=== PATIENT | female | born 1975 | race African-American/Black ===

== ENCOUNTER 2016-11-16 15:18 | Emergency (ER) | payer MEDICARE, OTHER ==
[~2016-11-16 15:18] MED LIST: AMARYL2 PO; AMB10 PO; CATAFLAM50 MG PO; CELEXA20 PO; CLIN200 PO; COZ25 PO; DIGITEK0.125 MG PO; ESKALITH PO; FLEX PO; FLOVENT44 INH; GLUCOPHAGE1000 MG PO; HYDROCHLOROT25 MG PO; INVEGA6 MG OR; L80 PO; LANTUS SC; LEVSINTAB PO; LIBRAX PO; LOM PO; LOP50 PO; LORTAB10 PO; NAVANE5 MG OR; NEUR300 PO; NEXIUM40 PO; NORV5 PO; PR12.5 PO; PR25 PO; PROVHFA INH; SEREVDISC INH; SPIRO25 PO; SYN.05 PO; TRAZ50 PO; VENTOLIN HFA INH; VIMPAT100 MG PO; VIMPAT150 MG PO; VITAMIN D1000 UNI1 PO; VIVELLE SY0.1 MG/24 TOP; ZEGERID1 CA1 PO; ZESTRIL20 MG PO; ZYDONE1 TA2 PO; ZYRTEC ALLGY10 MG PO; [UNRECOGNIZED DRUG - OTHER]
[2016-11-16 17:16] LABS: BASOPHILS 0.4 %; BASOPHILS ABSOLUTE 0.03 10/3/uL (0.0-0.16); EOSINOPHILS 2.9 %; EOSINOPHILS ABSOLUTE 0.24 10/3/uL (0.0-0.53); HEMATOCRIT 38.2 % (36.0-48.0); HEMOGLOBIN 13.2 g/dL (12.0-16.0); IMMATURE GRANULOCYTES 0.2 %; IMMATURE GRANULOCYTES ABSOLUTE 0.02 10/3/uL (0.0-0.11); LYMPHOCYTES 39.1 %; LYMPHOCYTES ABSOLUTE 3.19 10/3/uL (0.67-4.30); MEAN CORPUS HGB CONC 34.6 g/dL (32.0-36.0); MEAN CORPUSCULAR HEMOGLOB 28.7 pg (26.0-34.0); MEAN PLATELET VOLUME 11.2 fL (9.2-13.0); MONOCYTES ABSOLUTE 0.33 10/3/uL (0.21-1.20); NEUTROPHILS 53.4 %; NEUTROPHILS ABSOLUTE 4.35 10/3/uL (2.02-8.40); PLATELET COUNT 254 10/3/uL (150-400); WHITE BLOOD CELLS 8.2 10/3/uL (4.5-10.5)
[2016-11-16 17:20] LABS: MANUAL DIFF NO %
[2016-11-16 17:33] LABS: CALCIUM, SERUM 8.9 MG/DL (8.5-10.4); CHEST PAIN PROFILE TAT 0 Hrs 23 Mins; CHLORIDE, SERUM 100 MMOL/L (96-112); CO2 (CARBON DIOXIDE) 28 MMOL/L (24-34); CREATININE 0.89 MG/DL (0.55-1.02); GFR AFRICAN AMERICAN 94 ML/MIN (>=60); GFR NON AFRICAN AMERICAN 81 ML/MIN (>=60); GLUCOSE, SERUM 318 MG/DL (60-99); SODIUM, SERUM 136 MMOL/L (135-148); TROPONIN I <0.02 NG/ML (<0.05)
[2016-11-16 17:35] LABS: BUN (BLOOD UREA NITROGEN) 13 MG/DL (6-23); POTASSIUM, SERUM 4.6 MMOL/L (3.5-5.3)
[2016-11-16 17:48] LABS: INTERNATIONAL NORMAL RATI 1.2 UNITS (-); PARTIAL THROMBO TIME 28.8 SEC (22.5-37.2); PROTIME (NOT ORD) 14.9 SEC (12.0-14.5)
== END 2016-11-16 18:33 | disposition home or self-care (01) ==
LOC: ER 15:18
PROVIDERS: Physician Assistant
DX: M25.512 Pain in left shoulder (principal); I10 Essential (primary) hypertension; J45.909 Unspecified asthma, uncomplicated; K21.9 Gastro-esophageal reflux disease without esophagitis; E11.9 Type 2 diabetes mellitus without complications; Z88.6 Allergy status to analgesic agent; Z91.038 Other insect allergy status; Z79.899 Other long term (current) drug therapy
CPT/HCPCS: 71020; 73030-LT; 80048; 83735; 84484; 85025; 85610; 85730; 93005; 99284

== ENCOUNTER 2017-01-12 23:07 | Observation (INO) | payer MEDICARE, OTHER ==
--- NOTE | ~2017-01-12 | DS ---
Discharge Summary [facility] [address] [place]. [address] NAME: JEANINE MCGREGOR : 75 STATUS : DIS Brynn PAT#: [id number] AGE: 41 ADM/REG DATE : 01/12/17 MR#: [id number] REPORT SERV DATE: 01/14/17 DICTATED BY: SEBASTIÁN OLIVO DATE: 01/14/17 REPORT STATUS : Draft TRANSCRIBED BY: MODL DATE: 01/14/17 ADMISSION DATE: 01/12/2017 DISCHARGE DATE: 01/14/2017 PRINCIPAL DIAGNOSIS: Severe low back pain with bilateral sciatica. SECONDARY DIAGNOSES: Uncontrolled type 2 diabetes, noncompliance, urinary tract infection, and morbid obesity. HISTORY OF PRESENT ILLNESS: Please see Dr. Hernández's dictation 01/13/2017. HOSPITAL COURSE: Admitted with severe low back pain which impaired her ability to walk. The patient was found to have no sensory motor deficits. However, she did have some sciatic symptoms particularly on the right side of her back, severe tenderness in her mid back. MRI of the lumbar spine was negative, seen by Dr. Martinez, who felt no injection therapy to do and simple walking, heat and pain management was recommended but most importantly, diet control and weight loss. The patient was morbidly obese and had uncontrolled diabetes. Metformin had to be held due to her having received contrast for the CTA of the thorax which was done for unclear indication in the emergency department. She was given insulin and a diabetic education and was prescribed 40 units of 70/30 insulin q.a.m. 20 units q.p.m. with decision by Dr. Renner to restart the metformin at a later date. Other medicines were unchanged. She received Lortab prescription p.r.n. for pain, instructed for moist heat, and daily walking as well as 1500 calorie ADA diet. DICTATED BY: Genie Faustin/JI Sebastián Olivo M.D. / [id number] CC: Genie Faustin M.D.
--- NOTE | ~2017-01-12 | HP ---
History And Physical [address] [place]. [address] NAME: JEANINE MCGREGOR : 75 STATUS : ADM Brynn PAT#: [id number] AGE: 41 ADM/REG DATE : 01/12/17 MR#: [id number] REPORT SERV DATE: 01/13/17 DICTATED BY: ANN VALERIO DATE: 01/13/17 REPORT STATUS : Draft TRANSCRIBED BY: MODL DATE: 01/13/17 DATE OF ADMISSION: 01/12/2017 CHIEF COMPLAINT: A 41-year-old female, presenting with extreme back pain and difficulty walking. HISTORY OF PRESENTING ILLNESS: The patient's history was obtained through careful interview with the patient, coupled with review of [facility] medical records. The patient states for about a week she has had increasing back pain and weakness. Finally, the pain became so severe that she could not even walk this evening. She describes bilateral back pain that radiates into her hips and describes "shooting up and down," 10/10 severity. She has also felt weak all over, had near falls. She describes chills, but no fevers, nausea, but no vomiting. She has had dyspnea on exertion but no cough. No chest pain. She has been having increasing headaches. She describes as "migraines," it affects her at nighttime. She has had itching urinary discomfort with urinary frequency, but also polydipsia. She admits that her blood sugars are always elevated over 300, sometimes in the 400s. REVIEW OF SYSTEMS: Otherwise, a 14-point review of systems was obtained and was negative. PAST MEDICAL HISTORY: 1. Diabetes. 2. Schizoaffective disorder with bipolar disorder. 3. Hypertension. 4. Elevated cholesterol. 5. Atrial fibrillation. 6. Asthma. 7. Gastroesophageal reflux disorder. 8. Systolic congestive heart failure. Ejection fraction of 45%. 9. Migraine headaches. PAST SURGICAL HISTORY: 1. Hysterectomy. 2. Cholecystectomy. 3. Bilateral knee surgery. History And Physical [address] [address] NAME: JEANINE MCGREGOR : 75 STATUS : ADM Brynn PAT#: [id number] AGE: 41 ADM/REG DATE : 01/12/17 MR#: [id number] REPORT SERV DATE: 01/13/17 DICTATED BY: ANN VALERIO DATE: 01/13/17 REPORT STATUS : Draft TRANSCRIBED BY: JI DATE: 01/13/17 ALLERGIES TO: Wasp venom and aspirin. SOCIAL HISTORY: No tobacco abuse. No alcohol abuse. Lives with a boyfriend. Gets around from time to time in an electric scooter as needed. She has two children. Her daughter is currently with twins. No tobacco abuse. No alcohol abuse. FAMILY HISTORY: Father of heart disease. Grandmother with stroke. CURRENT MEDICATIONS: Include hydroxyzine, metformin 1000 mg p.o. daily, trazodone 300 mg p.o. at bedtime, losartan, Dulera, ProAir, Lipitor, Zyrtec, and Nexium 20 mg p.o. daily. PHYSICAL EXAMINATION: VITAL SIGNS: Temperature 96.8, pulse 120, blood pressure 131/90, respiratory rate 18, and O2 saturation 100% on room air. GENERAL: A pleasant, cooperative female. She describes no distress now that she is sitting in the bed, and her back pain is relieved by resting. HEENT: Pupils equal, round, and reactive to light. No conjunctival pallor. No scleral icterus. Nares are patent. Oropharynx is clear of obstruction. Moist mucous membranes. NECK: Trachea midline. No thyromegaly. LYMPH: No cervical lymphadenopathy. No supraclavicular lymphadenopathy. RESPIRATORY: Clear to auscultation at bases. No wheezes, rales, or rhonchi. Normal respiratory effort. CARDIOVASCULAR: Tachycardic, regular rhythm. No murmurs, rubs, or gallops. No extremity edema is appreciated. ABDOMEN: Soft, minimally tender throughout, but nonfocal, diffuse. No guarding, no rebound, nondistended. No hepatosplenomegaly. DERMATOLOGICAL: Warm and dry extremities. No pallor. No cyanosis. PSYCHIATRIC: Normal affect. Good mood. Alert and oriented x3. LABORATORY DATA: Urinalysis shows moderate leukocyte esterase with 20 white blood cells. White blood cell count 10.4, hemoglobin 14, hematocrit 41, and platelets 253. Sodium 133, potassium 4.4, chloride 99, bicarb 29, BUN 14, creatinine 1.19, glucose 386, CPK 121, troponin negative, CRP 32, lactic acid 1.7. AST 100, ALT 70, alkaline phosphatase 191. STUDIES: 1. Chest x-ray by my own evaluation shows no acute cardiopulmonary process. 2. EKG by my own evaluation shows sinus tachycardia. 3. CT angiogram of the chest shows no evidence of pulmonary embolism. No infiltrates. ASSESSMENT AND PLAN: 1. 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 Check an MRI of the back. Consult orthopedic spine to consider epidural injection to improve function. 2. Uncontrolled diabetes. Check hemoglobin A1c. Add Levemir. Add sliding scale insulin. Obtain a nurse informatics educator consult. 3. Urinary tract infection. Check urine culture to confirm. Place on IV antibiotics. 4. Morbid obesity. Body mass index of 50. History And Physical [address] [address] NAME: JEANINE MCGREGOR : 75 STATUS : ADM Brynn PAT#: [id number] AGE: 41 ADM/REG DATE : 01/12/17 MR#: [id number] REPORT SERV DATE: 01/13/17 DICTATED BY: ANN VALERIO DATE: 01/13/17 REPORT STATUS : Draft TRANSCRIBED BY: JI DATE: 01/13/17 KPL/IJ Ann Valerio M.D. / [id number] CC: Awais Boone M.D.
[2017-01-12 22:38] LABS: BASOPHILS 0.2 %; BASOPHILS ABSOLUTE 0.02 10/3/uL (0.0-0.16); EOSINOPHILS 2.7 %; EOSINOPHILS ABSOLUTE 0.28 10/3/uL (0.0-0.53); ER CBC TAT 0 Hrs 07 Mins; HEMATOCRIT 41.5 % (36.0-48.0); HEMOGLOBIN 14.4 g/dL (12.0-16.0); IMMATURE GRANULOCYTES 0.1 %; IMMATURE GRANULOCYTES ABSOLUTE 0.01 10/3/uL (0.0-0.11); LYMPHOCYTES 30.4 %; LYMPHOCYTES ABSOLUTE 3.16 10/3/uL (0.67-4.30); MEAN CORPUS HGB CONC 34.7 g/dL (32.0-36.0); MEAN CORPUSCULAR HEMOGLOB 28.5 pg (26.0-34.0); MEAN CORPUSCULAR VOLUME 82.2 fL (80-100); MEAN PLATELET VOLUME 11.5 fL (9.2-13.0); MONOCYTES ABSOLUTE 0.52 10/3/uL (0.21-1.20); NEUTROPHILS 61.6 %; NEUTROPHILS ABSOLUTE 6.42 10/3/uL (2.02-8.40); PLATELET COUNT 253 10/3/uL (150-400); RBC DISTRIBUTION WIDTH 12.8 % (12.0-16.0); RED CELL COUNT 5.05 10/6/uL (4.0-5.6); WHITE BLOOD CELLS 10.4 10/3/uL (4.5-10.5)
[2017-01-12 22:40] LABS: MANUAL DIFF NO %
[2017-01-12 22:55] LABS: A/G RATIO 0.9 (0.7-1.9); ALBUMIN 3.5 G/DL (3.5-5.0); ALKALINE PHOSPHATASE 191 U/L (45-117); BUN (BLOOD UREA NITROGEN) 14 MG/DL (6-23); C-REACTIVE PROTEIN 32.3 MG/L (<8.0); CALCIUM, SERUM 9.1 MG/DL (8.5-10.4); CHLORIDE, SERUM 99 MMOL/L (96-112); CO2 (CARBON DIOXIDE) 29 MMOL/L (24-34); CPK 121 U/L (0-200); CREATININE 1.19 MG/DL (0.55-1.02); GFR AFRICAN AMERICAN 66 ML/MIN (>=60); GFR NON AFRICAN AMERICAN 57 ML/MIN (>=60); POTASSIUM, SERUM 4.4 MMOL/L (3.5-5.3); SGOT(AST) 100 U/L (5-40); SGPT(ALT) 70 U/L (5-65); SODIUM, SERUM 133 MMOL/L (135-148); TOTAL BILIRUBIN 0.3 MG/DL (0-1.2); TOTAL PROTEIN 7.5 G/DL (6.0-8.5); TROPONIN I <0.02 NG/ML (<0.05)
[2017-01-12 22:56] LABS: GLUCOSE, SERUM 386 MG/DL (60-99)
[2017-01-12 23:46] LABS: ASCORBIC ACID (UR NOT ORDER) NEG (NEG); BILIRUBIN, URINE NEGATIVE (NEG); ER URINALYSIS TAT 0 Hrs 00 Mins; KETONE, URINE NEGATIVE (NEG); LEUKOCYTE ESTERASE(NOT OR MOD (NEG); NITRITE (URINE) NEG (NEG); WBC (NOT ORDERED) (RFLEX) 20 (0-5)
[2017-01-13 00:04] LABS: SED RATE 28 MM/HR (0-20)
[2017-01-13 01:49] LABS: AMPHETAMINES (NOT ORD) NEG (NEG); BARBITURATES (NOT ORDERED NEG (NEG); BENZODIAZEPINES (NOT ORD) NEG (NEG); CANNABINOIDS (THC) NEG (NEG); COCAINE (NOT ORDERED) NEG (NEG); OPIATES NEG (NEG); PHENCYCLIDINE(PCP) NEG (NEG); TRICYCLICS NEG (NEG)
[2017-01-13] MEDS ORDERED: TRAZODONE300 MG PO (02:07)
[2017-01-13] MEDS ORDERED: VIST50 PO (02:07)
[2017-01-13] MEDS ORDERED: LIPITOR20 PO (02:08)
[2017-01-13] MEDS ORDERED: DULERA INH (02:09)
[2017-01-13] MEDS ORDERED: LOSARTAN PO (02:09)
[2017-01-13] MEDS ORDERED: NEXIUM20 M1 PO (02:10)
[2017-01-13] MEDS ORDERED: ZYRTEC ALLGY10 MG PO (02:10)
[2017-01-13] MEDS ORDERED: PROAIR HFA INH (02:10)
[2017-01-13] MEDS ORDERED: GLUCOPHAGE1000 MG PO (02:11)
[2017-01-13] MEDS ORDERED: *UNABLE1 (02:14)
[2017-01-13] MEDS ORDERED: EPIPEN0.3 IM (02:15)
[2017-01-13 10:39] LABS: BASOPHILS 0.4 %; BASOPHILS ABSOLUTE 0.03 10/3/uL (0.0-0.16); EOSINOPHILS 4.1 %; EOSINOPHILS ABSOLUTE 0.31 10/3/uL (0.0-0.53); HEMATOCRIT 38.5 % (36.0-48.0); HEMOGLOBIN 13.3 g/dL (12.0-16.0); IMMATURE GRANULOCYTES 0.3 %; IMMATURE GRANULOCYTES ABSOLUTE 0.02 10/3/uL (0.0-0.11); LYMPHOCYTES 37.7 %; LYMPHOCYTES ABSOLUTE 2.88 10/3/uL (0.67-4.30); MANUAL DIFF NO %; MEAN CORPUS HGB CONC 34.5 g/dL (32.0-36.0); MEAN CORPUSCULAR HEMOGLOB 28.3 pg (26.0-34.0); MEAN CORPUSCULAR VOLUME 81.9 fL (80-100); MONOCYTES 4.8 %; MONOCYTES ABSOLUTE 0.37 10/3/uL (0.21-1.20); NEUTROPHILS 52.7 %; NEUTROPHILS ABSOLUTE 4.03 10/3/uL (2.02-8.40); PLATELET COUNT 250 10/3/uL (150-400); RBC DISTRIBUTION WIDTH 12.7 % (12.0-16.0); WHITE BLOOD CELLS 7.6 10/3/uL (4.5-10.5)
[2017-01-13 10:46] LABS: INTERNATIONAL NORMAL RATI 1.3 UNITS (-); PARTIAL THROMBO TIME 36.1 SEC (22.5-37.2); PROTIME (NOT ORD) 15.6 SEC (12.0-14.5)
[2017-01-13 11:14] LABS: A/G RATIO 0.8 (0.7-1.9); ALBUMIN 3.3 G/DL (3.5-5.0); BUN (BLOOD UREA NITROGEN) 14 MG/DL (6-23); CALCIUM, SERUM 8.6 MG/DL (8.5-10.4); CHLORIDE, SERUM 101 MMOL/L (96-112); CO2 (CARBON DIOXIDE) 28 MMOL/L (24-34); CREATININE 0.94 MG/DL (0.55-1.02); GFR AFRICAN AMERICAN 87 ML/MIN (>=60); GFR NON AFRICAN AMERICAN 75 ML/MIN (>=60); GLOBULIN 3.9 G/DL (2.5-4.1); POTASSIUM, SERUM 3.9 MMOL/L (3.5-5.3); SGOT(AST) 100 U/L (5-40); SGPT(ALT) 68 U/L (5-65); SODIUM, SERUM 135 MMOL/L (135-148); TOTAL BILIRUBIN 0.4 MG/DL (0-1.2); TOTAL PROTEIN 7.2 G/DL (6.0-8.5)
[2017-01-13 11:18] LABS: ALKALINE PHOSPHATASE 170 U/L (45-117); GLUCOSE, SERUM 275 MG/DL (60-99)
[2017-01-13] MEDS ORDERED: ABILIFY15 PO (12:22)
[2017-01-13 13:07] LABS: CREATININE (RANDOM URINE) 78.4 MG/DL; MICROALBUMIN, RANDOM URINE 0.5 MG/DL
[2017-01-14 04:22] LABS: BUN (BLOOD UREA NITROGEN) 17 MG/DL (6-23); CALCIUM, SERUM 8.4 MG/DL (8.5-10.4); CHLORIDE, SERUM 105 MMOL/L (96-112); CO2 (CARBON DIOXIDE) 28 MMOL/L (24-34); GFR AFRICAN AMERICAN 81 ML/MIN (>=60); GFR NON AFRICAN AMERICAN 70 ML/MIN (>=60); HDL CHOLESTEROL 41 MG/DL (> 49); POTASSIUM, SERUM 3.8 MMOL/L (3.5-5.3); SODIUM, SERUM 139 MMOL/L (135-148)
[2017-01-14 04:25] LABS: CHOL/HDL RATIO(NOT ORDER) 3.6 (0-5); CHOLESTEROL 149 MG/DL (< 200); GLUCOSE, SERUM 184 MG/DL (60-99); LDL CHOLESTEROL 84 MG/DL (< 130); NON-HDL CHOLESTEROL 108 MG/DL (< 160); TRIGLYCERIDE 122 MG/DL (< 150)
[2017-01-14] MEDS ORDERED: CEFT5 PO (11:57)
[2017-01-14] MEDS ORDERED: NORCO1 TA1 PO (12:02)
[2017-01-14] MEDS ORDERED: HUMULIN SC (12:03)
[2017-01-14] MEDS ORDERED: INSNOV7030 SC (12:05)
== END 2017-01-14 13:21 | disposition home or self-care (01) ==
LOC: ER 23:07 → CDU1 23:59
PROVIDERS: Emergency Medicine; Internal Medicine; Specialist
DX: M54.42 Lumbago with sciatica, left side (principal); M54.41 Lumbago with sciatica, right side; E11.9 Type 2 diabetes mellitus without complications; N39.0 Urinary tract infection, site not specified; E66.01 Morbid (severe) obesity due to excess calories; E78.00 Pure hypercholesterolemia, unspecified; I48.91 Unspecified atrial fibrillation; J45.909 Unspecified asthma, uncomplicated; K21.9 Gastro-esophageal reflux disease without esophagitis; I11.0 Hypertensive heart disease with heart failure; I50.9 Heart failure, unspecified; G43.909 Migraine, unspecified, not intractable, without status migrainosus; Z90.710 Acquired absence of both cervix and uterus; Z90.49 Acquired absence of other specified parts of digestive tract; Z98.890 Other specified postprocedural states; Z88.6 Allergy status to analgesic agent; Z82.49 Family history of ischemic heart disease and other diseases of the circulatory system; Z82.3 Family history of stroke; Z79.899 Other long term (current) drug therapy; Z98.51 Tubal ligation status
CPT/HCPCS: 71010; 71275; 72148; 80048; 80053; 80061; 80305; 81001; 82043; 82550; 82962; 83036; 83605; 83735; 84443; 84484; 85025; 85610; 85652; 85730; 86140; 87040; 87077; 87086; 87186; 93005; 96372; 96374; 96375; 96376; 99285; A9270-GY; G0378; J1885; Q9967

== ENCOUNTER 2017-01-29 20:59 | Emergency (ER) | payer OTHER ==
[~2017-01-29 20:59] MED LIST changes: +*UNABLE1; +ABILIFY15 PO; +CEFT5 PO; +DULERA INH; +EPIPEN0.3 IM; +HUMULIN SC; +INSNOV7030 SC; +LIPITOR20 PO; +LOSARTAN PO; +NEXIUM20 M1 PO; +NORCO1 TA1 PO; +PROAIR HFA INH; +TRAZODONE300 MG PO; +VIST50 PO
[2017-01-29 21:26] LABS: BASOPHILS 0.3 %; BASOPHILS ABSOLUTE 0.03 10/3/uL (0.0-0.16); EOSINOPHILS 1.9 %; EOSINOPHILS ABSOLUTE 0.19 10/3/uL (0.0-0.53); ER CBC TAT 0 Hrs 03 Mins; HEMOGLOBIN 15.5 g/dL (12.0-16.0); IMMATURE GRANULOCYTES 0.2 %; IMMATURE GRANULOCYTES ABSOLUTE 0.02 10/3/uL (0.0-0.11); LYMPHOCYTES 33.6 %; MEAN CORPUS HGB CONC 34.3 g/dL (32.0-36.0); MEAN CORPUSCULAR HEMOGLOB 28.4 pg (26.0-34.0); MEAN CORPUSCULAR VOLUME 82.8 fL (80-100); MEAN PLATELET VOLUME 11.3 fL (9.2-13.0); MONOCYTES 3.3 %; MONOCYTES ABSOLUTE 0.33 10/3/uL (0.21-1.20); NEUTROPHILS 60.7 %; NEUTROPHILS ABSOLUTE 6.16 10/3/uL (2.02-8.40); PLATELET COUNT 270 10/3/uL (150-400); RBC DISTRIBUTION WIDTH 12.8 % (12.0-16.0); RED CELL COUNT 5.46 10/6/uL (4.0-5.6); WHITE BLOOD CELLS 10.1 10/3/uL (4.5-10.5)
[2017-01-29 21:34] LABS: INTERNATIONAL NORMAL RATI 1.1 UNITS (-); PARTIAL THROMBO TIME 28.6 SEC (22.5-37.2); PROTIME (NOT ORD) 14.5 SEC (12.0-14.5)
[2017-01-29 21:39] LABS: HEMATOCRIT 45.2 % (36.0-48.0); MANUAL DIFF NO %
[2017-01-29 21:42] LABS: BUN (BLOOD UREA NITROGEN) 11 MG/DL (6-23); CALCIUM, SERUM 9.7 MG/DL (8.5-10.4); CHEST PAIN PROFILE TAT 0 Hrs 19 Mins; CHLORIDE, SERUM 102 MMOL/L (96-112); CO2 (CARBON DIOXIDE) 26 MMOL/L (24-34); CREATININE 1.16 MG/DL (0.55-1.02); GFR AFRICAN AMERICAN 68 ML/MIN (>=60); GFR NON AFRICAN AMERICAN 58 ML/MIN (>=60); GLUCOSE, SERUM 329 MG/DL (60-99); POTASSIUM, SERUM 4.1 MMOL/L (3.5-5.3); SODIUM, SERUM 136 MMOL/L (135-148); TROPONIN I <0.02 NG/ML (<0.05)
[2017-01-30 01:28] LABS: ALBUMIN 3.8 G/DL (3.5-5.0); ALKALINE PHOSPHATASE 166 U/L (45-117); SGOT(AST) 51 U/L (5-40); SGPT(ALT) 62 U/L (5-65); TOTAL BILIRUBIN 0.3 MG/DL (0-1.2); TOTAL PROTEIN 8.4 G/DL (6.0-8.5)
[2017-01-30 01:29] LABS: DIRECT BILIRUBIN < 0.1 MG/DL (0.0-0.4); INDIRECT BILIRUBIN(NOT ORDER) 0.2 MG/DL (0.1-0.9)
[2017-01-30 02:39] LABS: ASCORBIC ACID (UR NOT ORDER) NEG (NEG); BILIRUBIN, URINE NEGATIVE (NEG); ER URINALYSIS TAT 0 Hrs 00 Mins; KETONE, URINE NEGATIVE (NEG); LEUKOCYTE ESTERASE(NOT OR NEG (NEG); NITRITE (URINE) NEG (NEG); WBC (NOT ORDERED) (RFLEX) 1 (0-5)
== END 2017-01-30 04:08 | disposition home or self-care (01) ==
LOC: ER 20:59
PROVIDERS: Emergency Medicine
DX: K21.9 Gastro-esophageal reflux disease without esophagitis (principal); J44.9 Chronic obstructive pulmonary disease, unspecified; J45.909 Unspecified asthma, uncomplicated; I48.91 Unspecified atrial fibrillation; I11.0 Hypertensive heart disease with heart failure; I50.9 Heart failure, unspecified; F31.9 Bipolar disorder, unspecified; F20.9 Schizophrenia, unspecified; E11.9 Type 2 diabetes mellitus without complications; Z88.6 Allergy status to analgesic agent; Z79.899 Other long term (current) drug therapy; Z79.4 Long term (current) use of insulin; Z91.038 Other insect allergy status
CPT/HCPCS: 71020; 74176; 80048; 80076; 81001; 83690; 83735; 84484; 85025; 85610; 85730; 93005; 99285